=== PATIENT | female | born 1995 | race Caucasian/White ===

== ENCOUNTER → 2017-11-04 16:08 | Outpatient (CLI) | payer OTHER, MEDICAID, SELFPAY ==
[2017-11-04 18:05] LABS: Chlamydia Trachomatis by PCR Negative (Negative); Neisserai gonorrhoeae by PCR Negative (Negative)
[2017-11-04 18:06] LABS: Probe Check PASS; Sample Adequacy Control PASS; Specimen Processing Control PASS
[2017-11-07 12:12] LABS: HPV Reflexed? NOT INDICATED
== END ==
PROVIDERS: Visit Provider Obstetrics & Gynecology
DX: Z12.4 Encounter for screening for malignant neoplasm of cervix (principal); Z11.3 Encounter for screening for infections with a predominantly sexual mode of transmission; Z34.81 Encounter for supervision of other normal pregnancy, first trimester
CPT/HCPCS: 87491; 87591; 88175; G0145

== ENCOUNTER → 2017-12-02 11:45 | Outpatient (CLI) | payer MEDICAID, SELFPAY ==
--- NOTE | 2017-12-02 11:45 | DT_ITS ---
This patient was seen during an EMR downtime December 01, 2017 - December 08, 2017. This patient may have a combination of paper and electronic documentation or all paper documentation. All documentation is viewable within the e-chart portion of [employer] for each patient visit.
[2017-12-07 19:08] LABS: Color, Urine YELLOW (Yellow); Glucose, Dipstick Normal (Normal); Ketone-Dipstick Negative (Negative); Leukocyte Esterase-Dipstick 25 /ul (Negative); Nitrite-Dipstick Negative (Negative); Occult Blood-Urine Negative /ul (Negative); Protein-Dipstick Negative (Negative); Urine Bilirubin Dipstick Negative (Negative); Urine Clarity Clear (Clear); Urine Urobilinogen Normal (Normal)
[2017-12-07 19:15] LABS: Hematocrit 38.4 % (37-47); Hemoglobin 12.6 g/dl (12.0-15.0); Mean Corp Hgb Conc 32.8 g/gl (32-36); Mean Corpuscular Hgb 28.5 pg (27.0-32.0); Mean Corpuscular Volume 86.9 fL (81-99); Mean Platelet Vol. 10.4 fl (6.2-12.0); Platelet Count 371 K/mm3 (150-450); RBC Distribution Width CV 14.6 % (11.6-14.6); RBC Distribution Width SD 47.3 fl (35.1-43.9); Red Blood Count 4.42 M/mm3 (4.2-5.4); Scan Indicated on CBC? Y/N NO; White Blood Count 9.7 K/mm3 (4.4-11.0)
[2017-12-08 14:23] LABS: HIV - WCH Nonreactive (Nonreactive); Rubella IgG 191.7 IU/mL
[2017-12-08 20:39] LABS: Amphetamine Urine VISTA NEGATIVE (<1000 ng/mL); Barbiturate Urine VISTA NEGATIVE (< 200 ng/mL); Benzodiazepine Urine VISTA NEGATIVE (< 200 ng/mL); COTININE Drug Screen Negative (<200 ng/mL); Cocaine Urine VISTA NEGATIVE (< 300 ng/mL); Ecstacy Urine VISTA NEGATIVE (< 500 ng/mL); Methadone Urine VISTA NEGATIVE (< 300 ng/mL); PCP Urine VISTA NEGATIVE (< 25 ng/mL); THC Urine VISTA NEGATIVE (< 50 ng/mL)
[2017-12-08 20:41] LABS: Free T3 2.9 pg/mL (2.18-3.98); Thyroid Stim Hormone (TSH) 1.69 uIU/mL (0.358-3.74)
[2017-12-12 03:46] LABS: Prenatal RPR NONREACTIVE (NONREACTIVE)
== END ==
PROVIDERS: Visit Provider Obstetrics & Gynecology
DX: Z34.81 Encounter for supervision of other normal pregnancy, first trimester (principal)
CPT/HCPCS: 36415; 80307; 81002; 84439; 84443; 84481; 85027; 86703; 86762; 86803; 87340

== ENCOUNTER → 2018-03-31 13:55 | Outpatient (CLI) | payer MEDICAID, SELFPAY ==
[2018-03-31 15:56] LABS: Hematocrit 34.2 % (37-47); Hemoglobin 10.6 g/dl (12.0-15.0); Mean Corpuscular Hgb 27.4 pg (27.0-32.0); Mean Corpuscular Volume 88.4 fL (81-99); Mean Platelet Vol. 10.6 fl (6.2-12.0); Platelet Count 333 K/mm3 (150-450); RBC Distribution Width CV 14.7 % (11.6-14.6); RBC Distribution Width SD 47.8 fl (35.1-43.9); Red Blood Count 3.87 M/mm3 (4.2-5.4); White Blood Count 12.5 K/mm3 (4.4-11.0)
[2018-03-31 16:00] LABS: Scan Indicated on CBC? Y/N NO
[2018-03-31 16:13] LABS: Glucose Challenge Gest 1H 50g 161 mg/dL (70-140)
== END ==
PROVIDERS: Visit Provider Obstetrics & Gynecology
DX: Z34.82 Encounter for supervision of other normal pregnancy, second trimester (principal)
CPT/HCPCS: 36415; 82950; 85027

== ENCOUNTER → 2018-04-07 10:09 | Outpatient (CLI) | payer MEDICAID, SELFPAY ==
[2018-04-07 11:27] LABS: Glucose GTT-Gestation. Fasting 78 mg/dL (<105)
[2018-04-07 12:35] LABS: Glucose GTT-Gestational 2 Hr 132 mg/dL (<165)
[2018-04-07 12:36] LABS: Glucose GTT-Gestational 1 Hr 181 mg/dL (<190)
[2018-04-07 14:01] LABS: Glucose GTT-Gestational 3 Hr 105 L (<145)
== END ==
PROVIDERS: Referring Provider Obstetrics & Gynecology; Visit Provider Obstetrics & Gynecology
DX: O24.912 Unspecified diabetes mellitus in pregnancy, second trimester (principal); Z3A.00 Weeks of gestation of pregnancy not specified
CPT/HCPCS: 36415; 82951; 82952

== ENCOUNTER → 2018-05-26 15:43 | Outpatient (CLI) | payer OTHER, MEDICAID, SELFPAY ==
[2014-02-15 01:37] VITALS: BMI 5314.7
--- OUTSIDE RECORDS SUMMARY | 2018-07-22 08:43 | XMS RPT_ITS ---
:1995 Author Organization OHIP Care Team Providers Name Role Phone Maryuri Dash Attending Unavailable Maryuri Dash Primary Care Unavailable Maryuri Dash Attending Unavailable Maryuri Dash Primary Care Unavailable Maryuri Dash Admitting Unavailable Maryuri Dash Attending Unavailable Maryuri Dash Primary Care Unavailable Maryuri Dash Attending Unavailable Maryuri Dash Primary Care Unavailable Maryuri Dash Admitting Unavailable Maryuri Dash Attending Unavailable Maryuri Dash Primary Care Unavailable Tanya Willingham Attending Unavailable Tanya Willingham Referring Unavailable Tanya Willingham Attending Unavailable Tanya Willingham Referring Unavailable Primay Care Physicia, No Primary Care Unavailable Tanay Willingham Attending Unavailable Primay Care Physicia, No Primary Care Unavailable Tanya Willingham Attending Unavailable Primay Care Physicia, No Primary Care Unavailable Tanya Willingham Referring Unavailable Tanya Willingham Attending Unavailable Primay Care Physicia, No Primary Care Unavailable PROBLEMS PROBLEMS DATE TYPE CONDITION / CODE ATTENDING STATUS SOURCE 05/26/2018 Unknown Z36.85 - Encounter Tanya Willingham for Community screening for Hospital Streptococcus B / Repository Z36.85(ICD-10) 03/31/2018 Unknown Z34.82 - Encounter Tanya Willingham Active [place] for supervision of Community other normal Hospital , second Repository trimester / Z34.82(ICD-10) 03/10/2018 Unknown Z34.81 - Encounter Tanya Willingham Active [place] for supervision of [facility] other normal Hospital , first Repository trimester / Z34.81(ICD-10) 12/09/2017 Unknown Z12.4 - Encounter DewaynemorroLachelleTanya Active [place] for screening for Community malignant neoplasm Hospital of cervix / Repository Z12.4(ICD-10) PROCEDURES PROCEDURES No Procedure Records FoundRESULTS RESULTS Observed: 05/26/2018 Status: F Source: CECILY CULTURE, GROUP B 2:15 PM [facility] [place] Comments: VAGINAL/RECTAL CIELO Culture Group B Beta Streptococcus is not isolated. Performed By: #### M100.1800 #### [facility] [address] [place], [address] GESTATIONAL GTT 3HR Collected: 04/07/2018 Status: F Source: CECILY 100G 10:09 AM [facility] [place] Order Comment: Is Patient Fasting? Y TYPE CODE TESTS RESULT OUT OF RANGE REFERENCE UNITS LAB L501.0650 <105 mg/dL Normal GLU 78 GTT-FASTING Result Comment: GLUCOSE TOLERANCE TEST FOR Reference Interval GESTATIONAL DIABETES Fasting <105 mg/dL 1 hour <190 mg/dl 2 hour <165 mg/dl 3 hour <145 mg/dl LAB L501.0670 <165 mg/dL Normal GLU GTT- 2HR 132 LAB L501.0660 <190 mg/dL Normal GLU GTT- 1HR 181 LAB L501.0680 <145 L Normal GLU GTT- 3HR 105 Performed By: #### L500.4710 #### [facility] [address] [place], [address] CBC-COMPLETE BLOOD CNT Collected: 03/31/2018 Status: F Source: CECILY NO DIFF 2:00 PM [facility] [place] TYPE CODE TESTS RESULT OUT OF RANGE REFERENCE UNITS LAB L100.1000 4.4-11.0 K/mm3 High WBC 12.5 LAB L100.1200 4.2-5.4 M/mm3 Low RBC 3.87 LAB L100.1300 12.0-15.0 g/dl Low HGB 10.6 LAB L100.1400 37-47 % Low HCT 34.2 LAB L100.1500 81-99 fL Normal MCV 88.4 LAB L100.1600 27.0-32.0 pg Normal MCH 27.4 LAB L100.1700 32-36 g/gl Low MCHC 31.0 LAB L100.1810 11.6-14.6 % High RDW CV 14.7 LAB L100.1820 35.1-43.9 fl High RDW SD 47.8 LAB L100.1900 150-450 K/mm3 Normal PLT 333 LAB L100.2000 6.2-12.0 fl Normal MPV 10.6 Performed By: #### L100.0500 #### [facility] [address] [place], [address] GLUCOSE CHALLENGE GEST Collected: 03/31/2018 Status: F Source: CECILY 1H 50G 2:00 PM [facility] [place] TYPE CODE TESTS RESULT OUT OF RANGE REFERENCE UNITS LAB L501.0250 70-140 mg/dL High GLU GEST 161 50g 1H Performed By: #### L501.0250 #### [facility] [address] [place], [address] DOWNTIME REPORT Observed: 12/18/2017 Status: F Source: CECILY 1:24 PM [facility] [place] [facility] Medical Records Department [address] [place] [address] Downtime Report MR#: [id number] Acct: [id number] Name: WICHO PAREDES Rep #: [id number] : 1995 22 From: Fermín Fowler PCP: Care Physician, No Primary Status: REG CLI This patient was seen during an EMR downtime December 01, 2017 - December 08, 2017. This patient may have a combination of paper and electronic documentation or all paper documentation. All documentation is viewable within the e-chart portion of [employer] for each patient visit. RUBELLA IGG Collected: 12/02/2017 Status: F Source: CECILY 11:45 AM [facility] [place] Order Comment: RESULT(S) PREVIOUSLY REPORTED ON MANUAL REQUISITION DURING DOWNTIME. TYPE CODE TESTS RESULT OUT OF RANGE REFERENCE UNITS LAB L509.4000 IU/mL Normal Rubella IgG 191.7 Result Comment: Antibody results Interpretation of Immune Status < 5 IU/ml Presumed Non-immune 5 - < 10 IU/ml Equivocal > or = 10 IU/ml Presumed Immune Performed By: #### L509.4000, L3890.6005 #### [facility] [address] [place], [place], [address] HIV - [facility] Collected: 12/02/2017 Status: F Source: CECILY 11:45 AM [facility] [place] Order Comment: RESULT(S) PREVIOUSLY REPORTED ON MANUAL REQUISITION DURING DOWNTIME. TYPE CODE TESTS RESULT OUT OF REFERENCE UNITS RANGE LAB L3890.6005 Nonreactive Nonreactive Normal HIV - [facility] Performed By: #### L509.4000, L3890.6005 #### [facility] [address] [place], [place], [address] URINE DRUG SCREEN Collected: 12/02/2017 Status: P Source: CECILY (VISTA) 11:45 AM [facility] [place] Order Comment: List of Drugs Taken or Suspected? UNK TYPE CODE TESTS RESULT OUT OF RANGE REFERENCE UNITS LAB L505.0075 TO BE Normal CONFIRMED Result Comment: CONFIRMATORY TESTING FOR ALL POSITIVE URINE DRUG SCREEN RESULTS WILL ONLY BE SENT OUT UPON PHYSICIAN ORDER. VISTA Urine Drug Screen methods provide only preliminary analytical test results. A more specific alternate chemical method must be used in order to obtain a confirmed analytical result. Gas chromatography/mass spectrometery (GC/MS) is the preferred confirmatory method. Clinical consideration and professional judgement should be applied to any drug of abuse test result, particularly when preliminary positive results are used. URINE TCA TESTING MUST BE ORDERED SEPARATELY. USE TEST MNEMONIC: UTCA Performed By: #### L505.5000, L505.6240 #### [facility] [address] [place], [place], [address] NICOTINE URINE DRUG Collected: 12/02/2017 Status: P Source: CECILY SCREEN 11:45 AM [facility] [place] Order Comment: List of Drugs Taken or Suspected? UNK TYPE CODE TESTS RESULT OUT OF RANGE REFERENCE UNITS LAB L505.6250 TO BE Normal CONFIRMED Result Comment: CONFIRMATORY TESTING FOR ALL POSITIVE URINE DRUG SCREEN RESULTS WILL ONLY BE SENT OUT UPON PHYSICIAN ORDER. The results of Urine Drug Screen methods provide only preliminary analytical test results. A more specific alternate chemical method must be used in order to obtain a confirmed analytical result. Gas chromatography/mass spectrometery (GC/MS) is the preferred confirmatory method. Clinical consideration and professional judgement should be applied to any drug of abuse test result, particularly when preliminary positive results are used. LAB L505.6270 <200 ng/mL Normal COT DRG SCREEN Result Comment: Cotinine is the first-stage metabolite of Nicotine. Performed By: #### L505.5000, L505.6240 #### [facility] [address] [place], [address] FREE T3 Collected: 12/02/2017 Status: F Source: BREWSTER 11:45 AM [facility] [place] Order Comment: RESULT(S) PREVIOUSLY REPORTED ON MANUAL REQUISITION DURING DOWNTIME. TYPE CODE TESTS RESULT OUT OF RANGE REFERENCE UNITS LAB L501.99414 2.18-3.98 pg/mL Normal FREE T3 2.9 Performed By: #### L501.15937, L501.9520, L506.0400 #### [facility] [address] [place], [address] THYROID STIM HORMONE Collected: 12/02/2017 Status: F Source: BREWSTER (TSH) 11:45 AM [facility] [place] Order Comment: RESULT(S) PREVIOUSLY REPORTED ON MANUAL REQUISITION DURING DOWNTIME. TYPE CODE TESTS RESULT OUT OF RANGE REFERENCE UNITS LAB L501.9520 0.358-3.74 uIU/mL Normal TSH 1.69 Performed By: #### L501.11224, L501.9520, L506.0400 #### [facility] [address] [place], [address] T4 FREE DIRECT Collected: 12/02/2017 Status: F Source: BREWSTER 11:45 AM [facility] [place] Order Comment: RESULT(S) PREVIOUSLY REPORTED ON MANUAL REQUISITION DURING DOWNTIME. TYPE CODE TESTS RESULT OUT OF RANGE REFERENCE UNITS LAB L506.0400 0.76-1.46 ng/dL Normal T4 FREE 1.00 DIRECT Performed By: #### L501.71591, L501.9520, L506.0400 #### [facility] [address] [place], [address] RPR Collected: 12/02/2017 Status: F Source: CECILY 11:45 AM [facility] [place] TYPE CODE TESTS RESULT OUT OF REFERENCE UNITS RANGE LAB L700.5100 NONREACTIVE Normal RPR NONREACTIVE Performed By: #### L700.5100 #### [facility] [address] [place], [address] T AND S-NO Collected: 12/02/2017 Status: F Source: CECILY CHARGE W/PNP 11:45 AM [facility] [place] Order Comment: CHANGED TO CBC Reason for Type AND Screen/Red Cells: Surgery? N TYPE CODE TESTS RESULT OUT OF RANGE REFERENCE UNITS LAB B10.0800 A Normal BLOOD POSITIVE TYPE GEL LAB B100.4050 Normal Ab SCREEN NEGATIVE GEL Performed By: #### B100.7550 #### [facility] [address] [place], [address] CBC-COMPLETE BLOOD CNT Collected: 12/02/2017 Status: F Source: CECILY NO DIFF 11:45 AM [facility] [place] Order Comment: RESULT(S) PREVIOUSLY REPORTED ON MANUAL REQUISITION DURING DOWNTIME. TYPE CODE TESTS RESULT OUT OF RANGE REFERENCE UNITS LAB L100.1000 4.4-11.0 K/mm3 Normal WBC 9.7 LAB L100.1200 4.2-5.4 M/mm3 Normal RBC 4.42 LAB L100.1300 12.0-15.0 g/dl Normal HGB 12.6 LAB L100.1400 37-47 % Normal HCT 38.4 LAB L100.1500 81-99 fL Normal MCV 86.9 LAB L100.1600 27.0-32.0 pg Normal MCH 28.5 LAB L100.1700 32-36 g/gl Normal MCHC 32.8 LAB L100.1810 11.6-14.6 % Normal RDW CV 14.6 LAB L100.1820 35.1-43.9 fl High RDW SD 47.3 LAB L100.1900 150-450 K/mm3 Normal PLT 371 LAB L100.2000 6.2-12.0 fl Normal MPV 10.4 Performed By: #### L100.0500 #### [facility] [address] [place], [place], [address] URINALYSIS, ROUTINE Collected: 12/02/2017 Status: F Source: CECILY (DIPSTICK) 11:45 AM [facility] [place] Order Comment: RESULT(S) PREVIOUSLY REPORTED ON MANUAL REQUISITION DURING DOWNTIME. How was Urine Obtained? Urine, Random TYPE CODE TESTS RESULT OUT OF RANGE REFERENCE UNITS LAB L400.3000 Yellow COLOR Normal YELLOW LAB L400.3050 Clear Normal CLARITY Clear LAB L400.3200 Normal mg/dl Normal GLUCOSE, UR Normal LAB L400.3300 Negative mg/dL Normal BILIRUBIN URINE Negative LAB L400.3400 Negative mg/dl Normal KETONE UR Negative LAB L400.3465 1.002-1.030 Normal SP.GR. DIPSTX 1.010 LAB L400.3550 5.0 - 8.0 pH UR Normal 8.0 LAB L400.3600 Negative mg/dl PROT Normal DIPSTX Negative LAB L400.3700 Normal mg/dl Normal UROBILI Normal LAB L400.3750 Negative Normal NITRITE UR Negative LAB L400.3780 Negative /ul Normal OCCULT BLOOD-UR Negative LAB L400.3800 Negative /ul High LEUK 25 ESTERASE Performed By: #### L400.2010 #### [facility] [address] [place], [place], [address] HEPATITIS B SURFACE Collected: 12/02/2017 Status: F Source: CECILY AG 11:45 AM [facility] [place] TYPE CODE TESTS RESULT OUT OF RANGE REFERENCE UNITS LAB L3100.0400 Normal HB SURF AG Result Comment: TEST RESULT LIMITS HBsAg Screen Negative Negative TESTING PERFORMED AT [facility]. ORIGINAL REPORT ON FILE IN LAB CONTAINS ADDITIONAL TEST SITE INFORMATION. Performed By: #### L3100.0390 #### [facility] (refer to report for specific site) refer to report for address and phone number CT/NG [facility] BY PCR Collected: 11/04/2017 Status: F Source: BREWSTER 11:45 AM [facility] [place] TYPE CODE TESTS RESULT OUT OF RANGE REFERENCE UNITS LAB L8200.2100 Negative Normal Chlam Negative Trac PCR LAB L8200.2200 Negative Normal NG by Negative PCR Performed By: #### L8200.1999 #### [facility] [address] [place], [address] PAP I-G W/RFX HRHPV Collected: 11/04/2017 Status: F Source: BREWSTER 11:45 AM [facility] [place] Order Comment: CYTOLOGY INFORMATION: - CLINICAL INFORMATION: - DATE LMP/MENOPAUSE: LMP 09/17 - COLLECTION VIAL: Thin Prep Vial - MANAGER NICU SOURCE: CERVICAL/ENDOCERVICAL - COLLECTION TECHNIQUE: BRUSH/SPATULA Specimen Comment: [id number] Specimen Comment: No. of containers..01 ThinPrep Vial TYPE CODE TESTS RESULT OUT OF RANGE REFERENCE UNITS LAB L7400.0800 . Normal DIAGN Comment Result Comment: NEGATIVE FOR INTRAEPITHELIAL LESION AND MALIGNANCY. LAB L7400.0900 . Normal ADEQ Comment Result Comment: Satisfactory for evaluation. Endocervical and/or squamous metaplastic cells (endocervical component) are present. LAB L7400.1400 . Normal PERFORM Comment Result Comment: Jyothi [employer] (ASCP) LAB L7400.2575 . Normal TEST METHOD Comment Result Comment: This liquid based ThinPrep(R) pap test was screened with the use of an image guided system. LAB L7400.2600 . Normal . COMM LAB L7400.2700 . Normal PAPSMR Comment Result Comment: The Pap smear is a screening test designed to aid in the detection of premalignant and malignant conditions of the uterine cervix. It is not a diagnostic procedure and should not be used as the sole means of detecting cervical cancer. Both false-positive and false-negative reports do occur. LAB L7400.2800 . Normal HPV RFLX Comment Result Comment: The HPV DNA reflex criteria were not met with this specimen result therefore, no HPV testing was performed. Performed at: - [facility] [id number] Basket Hand Braider: Barb Moreno MD, Phone: [phone] Performed By: #### L7400.0350 #### [facility] (refer to report for specific site) refer to report for address and phone number ALLERGIES ALLERGIES DATE TYPE / CODE NAME / CODE REACTION SEVERITY SOURCE 12/27/2013 Drug No Known Unknown [facility] Allergy/416 Allergies/L01457 Hospital 944588(SNOM 0388(RXNORM) Repository ED CT) Drug/473624 No Known Caodaism 003(SNOMED Allergies [facility] CT) System Repository ENCOUNTERS ENCOUNTERS ADMIT/DISCHARGE ACCOUNT NUMBER ADMITTING ENCOUNTER LOCATION SOURCE CLASS 06/05/2018 [id number] [facility] ding:[place] Repository nt Medic 06/05/2018/06/05/[id number] ding:[place] Repository nt MedicRoom: Room 2 05/26/2018 [id number] [facility] ding:LABSPEC Repository 04/07/2018 [id number] [facility] ding:LAB.FUT Repository URE 03/31/2018 [id number] [facility] ding:WOBLAB Repository 12/25/2017/12/26/19 [id number] Maryuri Dash [address] ding:[place] Repository nt MedicRoom: Room 1 12/24/2017/12/25/19 [id number] Maryuri Dash [address] ding:[place] Repository nt MedicRoom: Room 3 12/02/2017 [id number] [facility] ding:WOBLAB Repository 11/27/2017/11/28/19 [id number] Ambulatory [address] ding:[place] Repository nt Medic 11/04/2017 [id number] Ambulatory [facility] ding:LABSPEC Repository PAYERS PAYERS ENCOUNTER GUARANTOR PAYER SUBSCRIBER SOURCE 06/05/2018 WICHO Hilario Primary JONATHON Sprague RAINESDOB: Insurance:1500 RAINESDOB: [facility] AETNAPolicy Number: [id number] System [facility] Effective [address]ository [place] Date:2018-06-[place], [place], [place] [address]Hdt: [id number] [id number]: Name:CD:[id number] O (HP) [address] [place] [address] ()Tel: [phone]: (wp) [phone] 06/05/2018 Secondary WICHO Sprague Insurance:1500 UNITED RAINESDOB: [facility] [id number] System PLANPolicy Number: [facility] Repository Effective [address] Date:2018-06-05, [place] [address]Odr: [id number] Name:CD:[id number].O. ()Tel: 000) [address] [place] [address] 000-0000 (WP) [id number]: 06/05/2018 WICHO Hilario Primary JONATHON Sprague RAINESDOB: Insurance:1500 RAINESDOB: [facility] AETNAPolicy Number: [id number] System [facility] Effective [address] Repository [place] Date:2017[place], [place] [address]Ocf: [id number] [id number]: Name:CD:[id number] O (HP) [address] [place] [address] ()Tel: [phone]: (wp) [phone] 06/05/2018 Secondary WICHO K Caodaism Insurance:[address] [place] [address]: [facility] [id number] [facility] Number: [address] Repository Effective [facility] Date:2017-12-24 [place], [place] [address]Bub: [id number] Name:CD:[id number].O. ()Tel: 000) [address] [place] [address] 000-0000 () [id number]: 05/26/2018 WICHO K Primary Insurance:[facility] WICHO K Cecily [id number] [facility]: [facility], Number: [id number] Hospital [address]Uos: [id number] Repository Date:2506-70-19DC [address] () [address] [place] [address]KB: 05/26/2018 Secondary NOT GIVENUNK Cecily Insurance:SELF PAY [facility] Number: Effective Repository Date:2018-05-26 04/07/2018 WICHO K Primary Insurance:[facility] WICHO K Cecily [id number] [facility], Number: [id number] Hospital [address]Ogu: [id number] Repository Date:0074-45-51JH [address] () [address] [place] [address] 78[address]AH: 04/07/2018 Secondary NOT GIVENUNK Cecily Insurance:SELF PAY [facility] Number: Effective Repository Date:2018-04-02 03/31/2018 WICHO K Primary Insurance:[facility] WICHO K [place] [id number] [facility], Number: [id number] Hospital [address]Ptu: [id number] Repository Date:8983-28-27RC [address] () [address] [place] [address]37[address]GH: 03/31/2018 Secondary NOT GIVENUNK Cecily Insurance:SELF PAY [facility] Number: Effective Repository Date:2018-03-31 12/25/2017 WICHO Hilario Primary JONATHON Sprague RAINESDOB: Insurance:1500 RAINESDOB: [facility] AETNAPolicy Number: [id number] System [facility] Effective [address] Repository [address] Date:2017-12-25[facility], [place] [address]Mat: [id number] [id number]: Name:CD:[id number] O (HP) [address] [place] [address] ()Tel: [phone]: (WP) [phone] 12/25/2017 Secondary WICHO Yanelis FournierCaodaism Insurance:[address] [facility]: [facility] [id number] System PLANPolicy Number: [facility] Repository Effective [address] Date:2017-12-25 , [place] [address]Xxx: [id number] Name:CD:[id number].O. ()Tel: (000) [address] [place] [address] 000-0000 (WP) 24415EI: 12/24/2017 WICHO Hilario Primary JONATHON Sprague RAINESDOB: Insurance:1500 RAINESDOB: [facility] AETNAPolicy Number: [id number] System [facility] Effective [address] Repository [address] Date:2017-12-24[place], [place], [place] [address]Lom: [id number] [id number]: Name:CD:[id number] O (HP) [address] [place] [address] ()Tel: [phone]: (WP) [phone] 12/24/2017 Secondary WICHO K Caodaism Insurance:1500 UNITED RAINESDOB: [facility] [id number] System PLANPolicy Number: [address] Repository Effective [facility] Date:2017-12-24 , [place] [address]Ogm: [id number] Name:CD:[id number].O. ()Tel: (000) [address] [place] [address] 000-0000 (WP) 948[address]IR: 12/02/2017 WICHO K Primary Insurance:[facility] WICHO K [place] [id number] [facility] RAINESDOB: [facility], Number: [id number] Hospital [address]Vxk: [id number] Repository Date:2131-58-10MZ [address] () [address] [place] [address] 765[address]RQ: 12/02/2017 Secondary NOT GIVENUNK [place] Insurance:SELF PAY [facility] Number: Effective Repository Date:2017-12-02 11/27/2017 WICHO K Primary JONATHON K Caodaism RAINESDOB: Insurance:1500 RAINESDOB: [facility] AETNAPolicy Number: [id number] Effective [address] [facility] [address] Repository [address] [place] [address] Date:2017-05-[address] [place] [id number]: [id number] [id number]: Name:CD:[id number] O () [address], [place] ()Tel: [phone]: (wp) [phone] 11/27/2017 Secondary WICHO K Caodaism Insurance:1500 UNITED RAINESDOB: [facility] [id number] System PLANPolicy Number: [address] [facility] [address] Repository Effective [address] [place] [address] Date:2017-05-29 [id number]: [id number] Name:CD:[id number].O. ()Tel: (809) [address] [place] [address] 000-0000 () [address]ME: 11/04/2017 WICHO K Primary Jonathon Cecily [id number] Insurance:AETNAPolicy RainDOB: [facility], Number: [id number] [facility] [address]Fjw: [id number] Repository Date:6079-06-79MJ [address] () [place], [place] [address]IT: 11/04/2017 Secondary WICHO K Cecily Insurance:[facility] RAINDOB: [facility] [id number] [facility] Number: Repository [id number] Date:9149-94-22UC [address] [place] [address]112[address]EB: 11/04/2017 Tertiary NOT GIVENUNK [place] Insurance:SELF PAY [facility] Number: Effective Repository Date:2017-11-04
== END ==
PROVIDERS: Visit Provider Obstetrics & Gynecology
DX: Z36.85 Encounter for antenatal screening for Streptococcus B (principal)
CPT/HCPCS: 87081

== ENCOUNTER 2018-07-02 07:00 | Inpatient (IN) | payer OTHER, MEDICAID, SELFPAY ==
[2018-07-02 07:12] VITALS: BMI 38.0
[2018-07-02] MEDS: Lactated Ringers 1,000 ML 50 ML IV ×3 (07:30→16:43)
[2018-07-02 07:49] LABS: Hemoglobin 11.1 g/dl (12.0-15.0); Mean Corp Hgb Conc 31.7 g/gl (32-36); Mean Corpuscular Volume 85.2 fL (81-99); Mean Platelet Vol. 10.3 fl (6.2-12.0); Platelet Count 304 K/mm3 (150-450); RBC Distribution Width CV 16.3 % (11.6-14.6); RBC Distribution Width SD 50.7 fl (35.1-43.9); Red Blood Count 4.11 M/mm3 (4.2-5.4); Scan Indicated on CBC? Y/N NO; White Blood Count 11.4 K/mm3 (4.4-11.0)
[2018-07-02] MEDS: Oxytocin 30 units/NS 500 ml 30 UNITS/500 ML IV.SOLN IV (07:56)
--- NOTE | 2018-07-02 09:12 | PCM.PN.BLA ---
Progress Note LABOR PROGRESS NOTE 41 1/7 wk EGA induction of labor Relatively unfavorable cervix in ofc last check GBS NEG AVSS Pitocin at 4 mIU/min EFM 130-140s avg variability accels UCs q 3-5 mins. Cx at ofc FT/25/high Cervix today -- 2/75/high, anterior to mid position, vtx well applied to cervix. AROM mod clear fluid. A/P: 41 1/7 wk induction. Admit Pitocin AROM. Watch progress, descent. Anticipate First labor 7 hrs.
[2018-07-02] MEDS: 0.9% Saline Lock 10 ML Syringe IV (12:03)
[2018-07-02] MEDS: fentaNYL-bupivacaine (epidural) 100 ML BAG EPIDURAL (12:41)
--- NOTE | 2018-07-02 14:37 | PCM.PN.BLA ---
Progress Note 41 1/7 wk induction postdates. Pitocin AROM Epidural placed. Comfortable, resting per RN AVSS pitocin at 8 mIU/min EFM: 120-130s with accels Avg variability. Accels to 160-170s UCs q 2-5 mins CX: per RN check 3-4/75/-2 at approx noon A/P: Induction postdates at 41 1/7 wk EFM reassuring Continue pitocin per protocol to adequate UCs watch progress, descent. Anticipate .
--- NOTE | 2018-07-02 15:59 | PCM.PN.BLA ---
Progress Note 41 1/7 wk induction postdates Epidural placed at approx noon Cervix then 3- Pitocin at 8 mIU/min. CX: 4 cm / 80/ -2 when vargas placed. EFM 120-130s avg variability accels. Occaisonal variable. Reassuring tracing. UCs q 3-5 + mins A/P: Inadequate labor. Extremely slow change of cervix for multip. Encouraged to put in IUPC to better guide pitocin. Inc pitocin to adequate UCs. Continue labor.
[2018-07-02] MEDS: Oxytocin 30 units/NS 500 ml 30 UNITS/500 ML IV.SOLN 334 UNITS IV (17:38)
--- NOTE | 2018-07-02 17:59 | PCM.OB.VAG ---
Vaginal Delivery Maternal Presentation: Medically Indicated Induction 41 1/7 wk induction postdates Method of Induction: Pitocin, Amniotomy Amniotic Membrane Rupture Type: Artificial Rupture of Membrane time: approx 0930 Amniotic Fluid Description: Clear Final JORGE: 06/24/18 Final JORGE Source: US <20 weeks Gestational age: 41 Weeks and 1 Days Date of Procedure: 07/02/18 Pre-Operative Diagnosis: 41 1/7 wk induction Post-Operative Diagnosis: Same Surgery/ Procedure Performed: Vacuum Assisted Vaginal Delivery - Vacuum assist +1 station. FHR in 90s with pushing. ROP. Single pull in green zone with maternal expulsive effort resulted in delivery of VTX Kiwi removed. Description of Procedure: Vacuum assisted vaginal. delivery +1 station. Fully dilated Mock in place. Comfortable w/ epidural. Kiwi applied 2/2 FHR in 90s with pushing, and ROP. Single pull in green zone resulted in delivery of vtx ROP position. no nuchal cord. Shoulders delivered easily. to maternal abdomen with spont cry after OP and nares bulb suctioned. PP exam labial abrasions noted, no repair, no lacerations. Pitocin started to expedite 3rd stage. Placenta delivered 3V normal appearing, intact with trailing membranes Manual exploration, no retained placnta EBL 100 cc Pt and infant tolerated delivery well. TO recovery , stable condition Ray Cristiane counts correct times two Presentation: Vertex Placental Delivery Description: Spontaneous, Expressed Cord Vessel Description: 3 Vessels Cord Entanglement: None Drain: Mock to straight drain Estimated Blood Loss: 100 Infant A gender: Female (1 minute): 8 (5 minute): 9 Episiotomy Description: None Laceration: None Medications given after delivery: IV Pitocin Complications: None
--- NOTE | 2018-07-02 18:05 | PCM.DCVAG ---
Discharge Diet: No Restrictions Discharge Activity: May Shower, May Take a Tub Bath May resume sexual activity in: 4-6 weeks Additional Activity Instructions:: Nothing in the vagina for 4-6 weeks. You may return to work/school in 6 weeks. Additional Instructions: If you experience any of the following, contact your healthcare provider. Bleeding that soaks a pad every hour for 2 hours Fever 100.4 or higher Unrelieved abdominal pain Problems urinating (including inability to urinate or burning while urinating). Visual changes Severe headache Flu-like symptoms Pain or redness in one of both of your breasts Pain, warmth, tenderness or swelling in your legs, especially the calf area Frequent nausea and vomiting Symptoms of depression or anxiety If you experience any of the following, call 911 or go to the nearest Emergency Room. Chest pain Problems breathing Seizure activity Partial or complete paralysis of a body part, slurred speech, weakness or drooping of the face, or a sudden inability to walk or hold your balance Allergies/Adverse Reactions: Allergies No Known Allergies Allergy (Verified 07/02/18 08:07) Medications to take at Discharge Ferrous Sulfate [Iron Supplement] 325 mg PO DAILY 12/27/13 Vits [Prenatabs FA ] 1 tablet PO DAILY 12/27/13 Sertraline HCl [Zoloft] 30 mg PO DAILY 07/02/18 Please Follow Up With: Tanya Willingham MD - [phone] When: Call to make an appointment with your doctor in 6 weeks. Primary Care Physician: Maryuri Dash MD [Primary Care Provider] - Test Results: Test results from this visit will be discussed in further detail at your follow-up appointment, if applicable. Proposed Discharge Date: 07/04/18
--- NOTE | 2018-07-02 18:06 | DCINST_ITS ---
Discharge Diet: No Restrictions Discharge Activity: May Shower, May Take a Tub Bath May resume sexual activity in: 4-6 weeks Additional Activity Instructions:: Nothing in the vagina for 4-6 weeks. You may return to work/school in 6 weeks. Additional Instructions: If you experience any of the following, contact your healthcare provider. * Bleeding that soaks a pad every hour for 2 hours * Fever 100.4 or higher * Unrelieved abdominal pain * Problems urinating (including inability to urinate or burning while urinating). * Visual changes * Severe headache * Flu-like symptoms * Pain or redness in one of both of your breasts * Pain, warmth, tenderness or swelling in your legs, especially the calf area * Frequent nausea and vomiting * Symptoms of depression or anxiety If you experience any of the following, call 911 or go to the nearest Emergency Room. * Chest pain * Problems breathing * Seizure activity * Partial or complete paralysis of a body part, slurred speech, weakness or drooping of the face, or a sudden inability to walk or hold your balance Allergies/Adverse Reactions: Allergies No Known Allergies Allergy (Verified 07/02/18 08:07) Medications to take at Discharge Ferrous Sulfate [Iron Supplement] 325 mg PO DAILY 12/27/13 Vits [Prenatabs FA ] 1 tablet PO DAILY 12/27/13 Sertraline HCl [Zoloft] 30 mg PO DAILY 07/02/18 Please Follow Up With: Tanya Willingham MD - [phone] When: Call to make an appointment with your doctor in 6 weeks. Primary Care Physician: Maryuri Dash MD [Primary Care Provider] - Test Results: Test results from this visit will be discussed in further detail at your follow- up appointment, if applicable. Proposed Discharge Date: 07/04/18
[2018-07-02] MEDS: Oxytocin 30 units/NS 500 ml 30 UNITS/500 ML IV.SOLN 167 UNITS IV (18:10)
[2018-07-02] MEDS: Acetaminophen 500 MG Tablet 1000 MG PO (22:09)
[2018-07-03] VITALS: BP 112/78; PULSE 77; RESP 18; TEMP 36.7
[2018-07-03] MEDS: Naproxen 250 MG Tablet PO ×2 (00:24→14:44)
--- NOTE | 2018-07-03 00:25 | NURSING ---
scanner not working on computer on wheels in pt room. scanner also not working in pt room at this time. will inform charge nurse and verify bands correctly at this time. manual barcode entered and confirmed with pt.
[2018-07-03 04:45] VITALS: BP 113/86; PULSE 77; RESP 16; TEMP 36.4
--- NOTE | 2018-07-03 07:57 | PCM.PN.OB ---
Subjective: PPD#1 Induction at 41 1/7 wk Tired this am. Baby nursing, but not well. Would like to stay to PPD#2. Pain control adequate. Baby 8# 5 oz. Denies any heavy vaginal bleeding. S/L still in place L hand. - Physical Exam General: Alert, Oriented x3, Cooperative, No apparent distress Neck: Supple Abdomen: Soft - Fundus firm NT at umbilicus Psych/Mental Status: Normal Affect Vital Signs Temp Pulse Resp BP 97.6 F L 77 16 113/86 H 07/03/18 04:45 07/03/18 04:45 07/03/18 04:45 07/03/18 04:45 Oxygen Delivery Method Room Air Weight: 110.223 kg Body Mass Index (BMI) 38.0 Intake and Output for Last 24 Hours 07/01/18 07/02/18 07/03/18 23:59 23:59 23:59 Intake Total 3547.4 / 3547.4 Output Total 2200 / 2200 850 / 850 Balance 1347.4 / 1347.4 -850 / -850 Laboratory Tests Past 24 Hrs 07/02/18 07:30 Blood Type A POSITIVE Antibody Screen NEGATIVE Medical Necessity - Tobacco Use Smoking Status: Former smoker Assessment/Plan PPD#1 Induction of labor 41 1/7 wk Stable Continue care.
[2018-07-03] MEDS: Acetaminophen 500 MG Tablet 1000 MG PO ×2 (08:37→20:21)
[2018-07-03] MEDS: Senna/Docusate Sodium 1 Tablet PO (08:38)
[2018-07-03] MEDS: Prenatal Vits Tablet 1 TABLET PO (08:38)
[2018-07-03 09:00] VITALS: BP 119/76; PULSE 75; RESP 16; TEMP 36.1
[2018-07-03 12:55] VITALS: BP 120/69; PULSE 86; RESP 16; TEMP 36.2
[2018-07-03 16:50] VITALS: BP 106/74; PULSE 86; RESP 16; TEMP 36.1
[2018-07-03 20:15] VITALS: BP 122/84; PULSE 64; RESP 16; TEMP 36.7
[2018-07-04 02:00] VITALS: BP 136/85; PULSE 82; RESP 16; TEMP 36.7
[2018-07-04] MEDS: Naproxen 250 MG Tablet PO ×2 (02:04→09:58)
[2018-07-04] MEDS: Acetaminophen 500 MG Tablet 1000 MG PO (04:30)
[2018-07-04 07:40] VITALS: BP 113/80; PULSE 85; RESP 14; TEMP 36.3; O2SAT 98
--- NOTE | 2018-07-04 08:22 | PCM.PN.OB ---
Subjective: PPD#1 Induction 41 1/7 wk Doing well. Minimal pain and bleeding. Baby is taking bottle, she is pumping to bottle feed now and supplementing with formula. Ready to go home today. - Physical Exam General: Alert, Oriented x3, Cooperative, No apparent distress HEENT: Atraumatic Neck: Supple Abdomen: Soft - Fundus firm NT at umbilicus Psych/Mental Status: Normal Affect Vital Signs Temp Pulse Resp BP Pulse Ox 97.4 F L 85 14 113/80 98 07/04/18 07:40 07/04/18 07:40 07/04/18 07:40 07/04/18 07:40 07/04/18 07:40 Oxygen Delivery Method Room Air Weight: 110.223 kg Body Mass Index (BMI) 38.0 Intake and Output for Last 24 Hours 07/02/18 07/03/18 07/04/18 23:59 23:59 23:59 Intake Total 3547.4 / 3547.4 Output Total 2200 / 2200 850 / 850 Balance 1347.4 / 1347.4 -850 / -850 Medical Necessity - Tobacco Use Smoking Status: Former smoker Assessment/Plan PPD#2 Induction of labor 41 1/7 wk Stable Dischg home today.
== END 2018-07-04 10:20 | disposition home or self-care (01) | DRG 807 ==
PROVIDERS: Admitting Provider Obstetrics & Gynecology; Family Provider Family Medicine; PCP Family Medicine; Referring Provider Obstetrics & Gynecology; Visit Provider Obstetrics & Gynecology
DX: O48.0 Post-term pregnancy (principal); Z87.891 Personal history of nicotine dependence; Z3A.41 41 weeks gestation of pregnancy; Z37.0 Single live birth
CPT/HCPCS: 59025; 59050; 85027; 86850; 86900; 99218; J7120; A4216; G0378

== ENCOUNTER → 2019-06-22 11:21 | Outpatient (CLI) | payer OTHER, MEDICAID, SELFPAY ==
[2019-06-22 13:28] LABS: Internal QC Validated? YES +Cl - CLEAR BKGD; Pregnancy, Urine Negative Negative
[2019-06-22 13:40] LABS: AST(SGOT) 17 U/L (15-37); Alanine Aminotransfer ALT/SGPT 20 U/L (13-56); Albumin, Serum 3.4 g/dL (3.2-5.0); Alkaline Phosphatase 65 U/L (45-117); Bilirubin, Direct 0.12 mg/dL (0.00-0.30); Cholesterol 232 mg/dL (200); Globulin 4.6 g/dL (2.2-4.2); High Density Lipoprotein 77 mg/dL; Triglycerides 230 mg/dL; Very Low Density Lipoprotein 46 mg/dL (5-40)
== END ==
PROVIDERS: Family Provider Family Medicine; PCP Family Medicine; Referring Provider Dermatology; Visit Provider Dermatology
DX: L70.0 Acne vulgaris (principal); Z79.899 Other long term (current) drug therapy
CPT/HCPCS: 36415; 80061; 80076; 81025

== ENCOUNTER → 2019-07-06 11:17 | Outpatient (CLI) | payer OTHER, MEDICAID, SELFPAY ==
[2019-07-06 14:09] LABS: Internal QC Validated? YES +Cl - CLEAR BKGD; Pregnancy, Urine Negative Negative
== END ==
PROVIDERS: Family Provider Family Medicine; PCP Family Medicine; Referring Provider Dermatology; Visit Provider Dermatology
DX: L70.0 Acne vulgaris (principal); Z79.899 Other long term (current) drug therapy
CPT/HCPCS: 81025